=== PATIENT | male | born 1970 | race American Indian/Alaskan Native ===

== ENCOUNTER 2017-10-25 15:27 | Inpatient (IN) | payer SELFPAY ==
--- NOTE | 2017-10-25 18:28 | Emergency Department Report ---
ED Shortness of Breath HPI - General Chief Complaint: Dyspnea/Respdistress Stated Complaint: FLU LIKE SYMPTOMS Time Seen by Provider: 10/25/17 16:42 Source: patient Mode of arrival: Ambulatory Limitations: No Limitations - History of Present Illness Initial Comments: 47-year-old male with no past medical history presents as complaining cough and shortness of breath times per month. Cough is productive of yellow sputum. Patient feels short of breath primarily with walking upstairs. Patient also complains of coughing with deep inspiration. He denies fever, body aches, chills, chest pain, no calf tenderness, recent travel, leg edema, history of PE/ DVT, orthopnea, or PND. He also denies smoking currently but has smoked in the past. - Related Data Allergies Allergy/AdvReac Type Severity Reaction Status Date / Time No Known Allergies Allergy Unverified 10/25/17 16:27 ED Review of Systems ROS: Stated complaint: FLU LIKE SYMPTOMS Other details as noted in HPI Comment: All other systems reviewed and negative Other: Constitutional: No fevers chills Eyes: No eye pain visual changes ENT: No ear pain or throat pain Neck: Denies pain Respiratory: As per HPI Cardiovascular: Denies chest pain, palpitations, syncope GI: Denies abdominal pain, nausea, vomiting, diarrhea : Denies dysuria Musculoskeletal: Denies back pain, joint swelling Skin: Denies rash, lesions, erythema Neurologic: Denies headache, numbness, weakness Psychiatric: Denies suicidal ideation, hallucinations ED Past Medical Hx - Past Medical History Previous Medical History?: No - Surgical History Past Surgical History?: Yes Additional Surgical History: hernia repair - Social History Smoking Status: Never Smoker Substance Use Type: Alcohol ED Physical Exam - General Limitations: No Limitations - Other Other exam information: General: No limitations, patient is alert in no acute distress Head exam: Atraumatic, normocephalic Eyes exam: Normal appearance ENT: Moist mucous membrane, normal oropharynx Neck exam: Normal inspection, full range of motion, no meningismus nontender Respiratory exam: No tachypnea or accessory muscle use. Bibasilar fine crackles Cardiovascular: Normal rate and rhythm, normal heart sounds Abdomen: Soft, nondistended, and nontender, with normal bowel sounds, no rebound, or guarding Extremity: Full range of motion normal inspection no deformity, tenderness or edema Back: Normal Inspection, full range of motion, no tenderness Neurologic: Alert, oriented x3, cranial nerves intact, no motor or sensory deficit Psychiatric: normal affect, normal mood Skin: Warm, dry, intact ED Course Vital Signs 10/25/17 16:27 Temperature 98.5 F Pulse Rate 76 Respiratory 16 Rate Blood Pressure 112/71 O2 Sat by Pulse 98 Oximetry - Reevaluation(s) Reevaluation #1: 10/25/17 18:57 Chest x-ray would a significant infiltrate Labs ordered INT with IV Rocephin and azithromycin ordered ED Medical Decision Making - Lab Data Result diagrams: 10/25/17 19:03 10/25/17 19:03 Lab Results 10/25/17 10/25/17 10/25/17 Range/Units 19:03 19:03 19:03 WBC 4.8 (4.5-11.0) K/mm3 RBC 4.44 (3.65-5.03) M/mm3 Hgb 14.7 (11.8-15.2) gm/dl Hct 43.4 (35.5-45.6) % MCV 98 H (84-94) fl MCH 33 H (28-32) pg MCHC 34 (32-34) % RDW 13.4 (13.2-15.2) % Plt Count 204 (140-440) K/mm3 Lymph % (Auto) 15.6 (13.4-35.0) % [place] % (Auto) 12.6 H (0.0-7.3) % Eos % (Auto) 2.6 (0.0-4.3) % Baso % (Auto) 0.6 (0.0-1.8) % Lymph # 0.7 L (1.2-5.4) K/mm3 [place] # 0.6 (0.0-0.8) K/mm3 Eos # 0.1 (0.0-0.4) K/mm3 Baso # 0.0 (0.0-0.1) K/mm3 Seg Neutrophils % 68.6 (40.0-70.0) % Seg Neutrophils # 3.3 (1.8-7.7) K/mm3 VBG pH (7.320-7.420) Sodium 141 (137-145) mmol/L Potassium 3.9 (3.6-5.0) mmol/L Chloride 101.4 (98-107) mmol/L Carbon Dioxide 27 (22-30) mmol/L Anion Gap 17 mmol/L BUN 13 (9-20) mg/dL Creatinine 0.9 (0.8-1.5) mg/dL Estimated GFR > 60 ml/min BUN/Creatinine Ratio 14 % Glucose 98 (75-100) mg/dL Lactic Acid 1.80 (0.7-2.0) mmol/L Calcium 9.3 (8.4-10.2) mg/dL NT-Pro-B Natriuret Pep (0-450) pg/mL 10/25/17 10/25/17 Range/Units 19:03 19:03 WBC (4.5-11.0) K/mm3 RBC (3.65-5.03) M/mm3 Hgb (11.8-15.2) gm/dl Hct (35.5-45.6) % MCV (84-94) fl MCH (28-32) pg MCHC (32-34) % RDW (13.2-15.2) % Plt Count (140-440) K/mm3 Lymph % (Auto) (13.4-35.0) % [place] % (Auto) (0.0-7.3) % Eos % (Auto) (0.0-4.3) % Baso % (Auto) (0.0-1.8) % Lymph # (1.2-5.4) K/mm3 [place] # (0.0-0.8) K/mm3 Eos # (0.0-0.4) K/mm3 Baso # (0.0-0.1) K/mm3 Seg Neutrophils % (40.0-70.0) % Seg Neutrophils # (1.8-7.7) K/mm3 VBG pH 7.303 L (7.320-7.420) Sodium (137-145) mmol/L Potassium (3.6-5.0) mmol/L Chloride (98-107) mmol/L Carbon Dioxide (22-30) mmol/L Anion Gap mmol/L BUN (9-20) mg/dL Creatinine (0.8-1.5) mg/dL Estimated GFR ml/min BUN/Creatinine Ratio % Glucose (75-100) mg/dL Lactic Acid (0.7-2.0) mmol/L Calcium (8.4-10.2) mg/dL NT-Pro-B Natriuret Pep 53.30 (0-450) pg/mL - EKG Data -: EKG Interpreted by Me (RBBB, ) EKG shows normal: sinus rhythm (72), axis (-34), QRS complexes (138), ST-T waves (repol) Rate: normal - EKG Data When compared to previous EKG there are: previous EKG unavailable - Radiology Data Radiology results: report reviewed read radiologist Chest x-ray: Abnormal bands of increased density right and left lungs. May be chronic represent scarring but can exclude pneumonia CT angiogram chest: 2 small pulmonary emboli suspected. Mild to moderate emphysematous changes in both lungs. Patchy alveolar densities and consolidations bilaterally. Air bronchograms. Was suggestive of pneumonia and or atelectasis instead of mass. Large areas of confluence fibrosis could also present in this manner. Some changes may also represented chronic fibrosis - Medical Decision Making Patient's chest x-ray and CT angiogram significant for infiltrates/fibrosis as well as pulmonary emboli. Vital signs remained stable. Patient received Rocephin, azithromycin, and Lovenox in the ED. Plan to admit to the hospital for further treatment and pulmonology consultation. - Differential Diagnosis bronchitis, CHF, pneumonia, PE, unstable angina Critical Care Time: No Critical care attestation.: If time is entered above; I have spent that time in minutes in the direct care of this critically ill patient, excluding procedure time. ED Disposition Clinical Impression: Pneumonia, Pulmonary infiltrates, Pulmonary emboli, Pulmonary fibrosis, Emphysema lung Disposition: OP ADMIT IP TO THIS HOSP Is pt being admited?: Yes Condition: Stable Time of Disposition: 21:52 (Dr Michael/hosp)
[2017-10-25] MEDS ORDERED: ZITHROMAX 500 MG in NACL 0.9% 250ML 250 ML IV ONE (18:55)
[2017-10-25] MEDS ORDERED: ROCEPHIN/NS 1 GM/50 ML 1 GM/50 ML BAG IV ONE (18:55)
--- NOTE | 2017-10-25 19:02 | XRay Report ---
FINAL REPORT PROCEDURE: PA and lateral chest x-ray TECHNIQUE: PA and lateral chest radiographs were obtained. CPT 64138 HISTORY: cough/sob COMPARISON: No prior studies are available for comparison. FINDINGS: Heart size and pulmonary vasculature appear normal. Patchy bands of increased density project throughout the right mid and lower lung field and in the left midlung field. Some of this may represent parenchymal scarring. Correlation with clinical presentation necessary to exclude acute abnormalities such as pneumonia. No effusions are identified. No acute bony abnormalities are seen. IMPRESSION: Abnormal bands of increased density right and left lungs as described. Some of this may be chronic and represent scarring. I cannot exclude pneumonia..
[2017-10-25 19:15] LABS: Basophils % (Auto) 0.6 % (0.0-1.8); Eosinophils # (Auto) 0.1 K/mm3 (0.0-0.4); Eosinophils % (Auto) 2.6 % (0.0-4.3); Hematocrit 43.4 % (35.5-45.6); Hemoglobin 14.7 gm/dl (11.8-15.2); Lymphocytes # (Auto) 0.7 K/mm3 (1.2-5.4); Lymphocytes % (Auto) 15.6 % (13.4-35.0); Mean Corpuscular HGB Conc 34 % (32-34); Mean Corpuscular Hemoglobin 33 pg (28-32); Mean Corpuscular Volume 98 fl (84-94); Monocytes # (Auto) 0.6 K/mm3 (0.0-0.8); Monocytes % (Auto) 12.6 % (0.0-7.3); Platelet Count 204 K/mm3 (140-440); Red Blood Count 4.44 M/mm3 (3.65-5.03); Red Cell Distribution Width 13.4 % (13.2-15.2)
[2017-10-25 19:40] LABS: BUN/Creatinine Ratio 14; Blood Urea Nitrogen 13 mg/dL (9-20); Calcium 9.3 mg/dL (8.4-10.2); Hemolysis Index 6
--- NOTE | 2017-10-25 21:50 | Cat Scan Report ---
FINAL REPORT PROCEDURE: CT ANGIO CHEST TECHNIQUE: Computerized tomographic angiography of the chest was performed during the IV injection of iodinated nonionic contrast including image processing. The image data was postprocessed using 2-dimensional multiplanar reformatted (MPR) and 3-dimensional (MIP and/or volume rendered) techniques. HISTORY: cough, sob, infiltrate vs lung scarring. Evaluate pulmonary embolus COMPARISON: No prior studies are available for comparison. FINDINGS: Pulmonary outflow tract, right and left main pulmonary arteries and their proximal branches: There is a thin linear filling defects seen extending from the left main pulmonary artery into 1 of the branches of the left upper lobe seen on coronal image 73 and 74 series 201 and axial image 45 series 3. The appearance is consistent with a small pulmonary embolus. There is also a small filling defects seen tip in the proximal end of the left lower lobe pulmonary artery visualized on axial image 49 series 3 and coronal image 79 through 81 series 201. this appearance is also consistent with a small pulmonary embolus. Pulmonary outflow tract right and left main pulmonary arteries in their proximal branches otherwise appear clear. Pericardium: No evidence of pericardial effusion. Thoracic aorta: No evidence of aortic aneurysm Coronary arteries: Are partially calcified indicating atherosclerotic disease. Mediastinum and hilar regions: Nonspecific subcentimeter lymph nodes are visualized. No pathologically enlarged lymph nodes or masses are identified. Lung [place]: There is mild to moderate emphysematous change seen in both upper lobes. There is patchy increased alveolar densities and confluent areas of consolidation extending into the right upper lobe, right perihilar region, left perihilar region with multiple air bronchograms present. Interstitial markings are diffusely coarsened. No discrete masses are identified. No effusions or pneumothorax are seen. Upper abdomen: Spleen is enlarged measuring 14.3 centimeter. Upper abdomen otherwise unremarkable. Other: No acute bony abnormalities are visualized. IMPRESSION: Small filling defect visualized left lower lobe pulmonary artery and 1 of the branches of the left upper lobe pulmonary arteries consistent with small pulmonary embolus. No other pulmonary emboli are visualized. Mild to moderate emphysematous changes seen in both upper lobes. There are patchy alveolar densities and consolidations visualized bilaterally as described. Air bronchograms are visualized. No discrete masses are identified. The appearance is more suggestive of pneumonia and or atelectasis than a mass. Large areas of confluent fibrosis could present this manner.. Endobronchial lesions cannot be excluded. Some of the changes may also represent chronic fibrosis. Interstitial markings diffusely coarsened. I suspect a portion of this represents fibrosis. Superimposed interstitial infiltrate not entirely excluded. No effusions are seen. Critical value: These findings were discussed in detail with on 10/25/2017 at 9:43 p.m. Eastern standard time.
[2017-10-25] MEDS: LOVENOX SUB-Q SCH (22:32)
--- NOTE | 2017-10-25 22:44 | History and Physical Report ---
History of Present Illness Date of examination: 10/25/17 History of present illness: 47-year-old man with no medical problems comes emergency room with complaints of shortness of breath, dyspnea on exertion especially within going upstairs and cough productive of yellow phlegm 2 months he denies any fever or chills Review Of Systems: Constitutional: no weight loss Ears, eyes, nose, mouth and throat: no nasal congestion, no nasal discharge, no sinus pressure, blurry vision, diplopia Neck: No neck pain or rigidity. Cardiovascular: chest pain, orthopnea, palpitations Respiratory: +shortness of breath, cough Gastrointestinal: abdominal pain, hematochezia Genitourinary : no dysuria, frequency , hematuria Musculoskeletal: no muscle ache Integumentary: no rash, no pruritis Neurological: no parathesias, focal weakness Endocrine: no cold or heat intolerance, no polyuria or polydipsia Hematologic/Lymphatic: no easy bruising, no easy bleeding, no gland swelling Allergic/Immunologic: no urticaria, no angioedema. PAST MEDICAL HISTORY:none PAST SURGICAL HISTORY: none FAMILY HISTORY: Hypertension SOCIAL HISTORY: No tobacco, alcohol, drugs Medications and Allergies Allergies Allergy/AdvReac Type Severity Reaction Status Date / Time No Known Allergies Allergy Unverified 10/25/17 16:27 Active Meds: Active Medications Enoxaparin Sodium (Lovenox) 80 mg 1 mg/kg (80 mg) SUB-Q Q12HR IHLARIA Last Admin: 10/25/17 22:32 Dose: 80 mg Exam - Physical Exam Narrative exam: Gen. appearance: Patient lying in bed in no acute distress HEENT: Normocephalic/atraumatic, pupils equal round reactive to light, extra alkaline movement intact, no scleral icterus, no JVD or thyromegaly or nodule, neck is supple, mucous membrane moist, no erythema or exudate Heart: S1-S2, regular rate and rhythm Lungs: Crackle, breathing comfortable Abdomen: Positive bowel sounds, nontender, nondistended, no organomegaly Extremities: No edema, cyanosis, clubbing Neuro:: Oriented 3 , cranial nerves II-12 intact, speech, motor intact Skin: No rash, nodules, warm dry - Constitutional Vitals: Temp Pulse Resp BP Pulse Ox 98.5 F 54 L 22 128/77 100 10/25/17 16:27 10/25/17 22:16 10/25/17 22:16 10/25/17 22:16 10/25/17 22:09 Results - Labs CBC & Chem 7: 10/25/17 19:03 10/25/17 19:03 Labs: Abnormal lab results 10/25/17 10/25/17 Range/Units 19:03 19:03 MCV 98 H (84-94) fl MCH 33 H (28-32) pg [place] % (Auto) 12.6 H (0.0-7.3) % Lymph # 0.7 L (1.2-5.4) K/mm3 VBG pH 7.303 L (7.320-7.420) - Imaging and Cardiology EKG: image reviewed Chest x-ray: image reviewed CT scan - chest: report reviewed Assessment and Plan Assessment Acute pulmonary Emboli Pneumonia, community-acquired Plan Admit to medicine Start full dose lovenox, IV levaquin, percocet for pain Obtain doppler of lower extremities DVT prophylaxis
[2017-10-25] MEDS ORDERED: ZOFRAN IV PRN (23:12)
[2017-10-25] MEDS ORDERED: DULCOLAX PR PRN (23:12)
[2017-10-25] MEDS ORDERED: MILK OF MAGNESIA PO PRN (23:12)
[2017-10-25] MEDS ORDERED: TYLENOL PO PRN (23:12)
[2017-10-25] MEDS ORDERED: PERCOCET 5/325 PO PRN (23:12)
[2017-10-26 06:35] LABS: Basophils % (Auto) 0.5 % (0.0-1.8); Eosinophils # (Auto) 0.1 K/mm3 (0.0-0.4); Eosinophils % (Auto) 2.8 % (0.0-4.3); Hematocrit 40.9 % (35.5-45.6); Hemoglobin 13.7 gm/dl (11.8-15.2); Lymphocytes # (Auto) 0.6 K/mm3 (1.2-5.4); Lymphocytes % (Auto) 14.1 % (13.4-35.0); Mean Corpuscular HGB Conc 34 % (32-34); Mean Corpuscular Hemoglobin 33 pg (28-32); Mean Corpuscular Volume 98 fl (84-94); Monocytes # (Auto) 0.7 K/mm3 (0.0-0.8); Monocytes % (Auto) 15.5 % (0.0-7.3); Platelet Count 192 K/mm3 (140-440); Red Blood Count 4.18 M/mm3 (3.65-5.03); Red Cell Distribution Width 13.4 % (13.2-15.2)
[2017-10-26 06:54] LABS: BUN/Creatinine Ratio 14; Blood Urea Nitrogen 11 mg/dL (9-20); Hemolysis Index 3
--- NOTE | 2017-10-26 09:02 | Progress Note ---
Assessment and Plan Assessment and plan: --Pulmonary embolism; continue full dose Lovenox, oxygen titrated to O2 sats more than 90%, supportive care We will switch to eliquis, hypercoagulable workup, hematology consult --Community-acquired pneumonia; currently, continue current antibiotics Follow cultures, supportive care --Ongoing tobacco use; smoking cessation counseling done Advised nicotine patch as needed --DVT prophylaxis; patient is on lovenox Closely monitor the patient and adjust management as needed Follow-up hematology recommendations Possible discharge in 1-2 days if stable --DC planning. Case management Plan of care reviewed with the patient and his nurse History Interval history: Patient seen and examined medical records reviewed Admitted with pulmonary embolism, and bilateral pneumonia On full dose anticoagulation with Lovenox Patient feels better no new complaints Vital signs reviewed Hospitalist Physical - Constitutional Vitals: Temp Pulse Resp BP Pulse Ox 97.9 F 63 18 116/84 97 10/26/17 05:15 10/26/17 05:15 10/26/17 05:15 10/26/17 05:15 10/26/17 05:15 General appearance: Present: no acute distress, well-nourished - EENT Eyes: Present: PERRL, EOM intact - Neck Neck: Present: supple, normal ROM - Respiratory Respiratory effort: normal Respiratory: bilateral: diminished, rhonchi, negative: rales, wheezing - Cardiovascular Rhythm: regular Heart Sounds: Present: S1 & S2 - Extremities Extremities: no ischemia, No edema - Abdominal General gastrointestinal: soft, non-tender, non-distended, normal bowel sounds - Integumentary Integumentary: Present: clear, warm - Psychiatric Psychiatric: appropriate mood/affect, cooperative - Neurologic Neurologic: CNII-XII intact, moves all extremities Results - Labs CBC & Chem 7: 10/26/17 05:54 10/26/17 05:54 Labs: Laboratory Last Values WBC 4.6 K/mm3 (4.5-11.0) 10/26/17 05:54 RBC 4.18 M/mm3 (3.65-5.03) 10/26/17 05:54 Hgb 13.7 gm/dl (11.8-15.2) 10/26/17 05:54 Hct 40.9 % (35.5-45.6) 10/26/17 05:54 MCV 98 fl (84-94) H 10/26/17 05:54 MCH 33 pg (28-32) H 10/26/17 05:54 MCHC 34 % (32-34) 10/26/17 05:54 RDW 13.4 % (13.2-15.2) 10/26/17 05:54 Plt Count 192 K/mm3 (140-440) 10/26/17 05:54 Lymph % (Auto) 14.1 % (13.4-35.0) 10/26/17 05:54 [place] % (Auto) 15.5 % (0.0-7.3) H 10/26/17 05:54 Eos % (Auto) 2.8 % (0.0-4.3) 10/26/17 05:54 Baso % (Auto) 0.5 % (0.0-1.8) 10/26/17 05:54 Lymph # 0.6 K/mm3 (1.2-5.4) L 10/26/17 05:54 [place] # 0.7 K/mm3 (0.0-0.8) 10/26/17 05:54 Eos # 0.1 K/mm3 (0.0-0.4) 10/26/17 05:54 Baso # 0.0 K/mm3 (0.0-0.1) 10/26/17 05:54 Seg Neutrophils % 67.1 % (40.0-70.0) 10/26/17 05:54 Seg Neutrophils # 3.1 K/mm3 (1.8-7.7) 10/26/17 05:54 VBG pH 7.303 (7.320-7.420) L 10/25/17 19:03 Sodium 137 mmol/L (137-145) 10/26/17 05:54 Potassium 4.0 mmol/L (3.6-5.0) 10/26/17 05:54 Chloride 101.3 mmol/L (98-107) 10/26/17 05:54 Carbon Dioxide 26 mmol/L (22-30) 10/26/17 05:54 Anion Gap 14 mmol/L 10/26/17 05:54 BUN 11 mg/dL (9-20) 10/26/17 05:54 Creatinine 0.8 mg/dL (0.8-1.5) 10/26/17 05:54 Estimated GFR > 60 ml/min 10/26/17 05:54 BUN/Creatinine Ratio 14 % 10/26/17 05:54 Glucose 122 mg/dL (75-100) H 10/26/17 05:54 Lactic Acid 1.80 mmol/L (0.7-2.0) 10/25/17 19:03 Calcium 9.0 mg/dL (8.4-10.2) 10/26/17 05:54 NT-Pro-B Natriuret Pep 53.30 pg/mL (0-450) 10/25/17 19:03
--- NOTE | 2017-10-26 10:05 | Hem/Onc Consultation ---
History of Present Illness - Reason for Consult Consult date: 10/26/17 - History of Present Illness 47-year-old male with no past medical history presents as complaining cough and shortness of breath times per month. Cough is productive of yellow sputum. Patient feels short of breath primarily with walking upstairs. Patient also complains of coughing with deep inspiration. He denies fever, body aches, chills, chest pain, no calf tenderness, recent travel, leg edema, history of PE/ DVT, orthopnea, or PND. He also denies smoking currently but has smoked in the past but quit in August. Denies any family history of thrombosis. Denies any previous history of thrombosis. Patient used to drive a cab But quit 2 years ago. He has been quite active. Denies any active weight loss. Does not take any hormones. Patient underwent CT angiogram to rule out PE and he did have a small left- sided PE. He also had evidence of pneumonia. Hematology consult was called Medications and Allergies Allergies Allergy/AdvReac Type Severity Reaction Status Date / Time No Known Allergies Allergy Unverified 10/25/17 16:27 Home Medications Medication Instructions Recorded Confirmed Last Taken Type No Known Home Medications [No 10/26/17 10/26/17 Unknown History Reported Home Medications] Active Meds: Active Medications Acetaminophen (Tylenol) 650 mg PO Q4H PRN PRN Reason: Pain MILD(1-3)/Fever >100.5/BENÍTEZ Bisacodyl (Dulcolax) 10 mg [place] QDAY PRN PRN Reason: Constipation unrelieved by MOM Enoxaparin Sodium (Lovenox) 80 mg 1 mg/kg (80 mg) SUB-Q Q12HR HILARIA Last Admin: 10/25/17 22:32 Dose: 80 mg Levofloxacin/Dextrose (Levaquin 750mg/150ml) 750 mg in 150 mls @ 100 mls/hr IV Q24H HILARIA Magnesium Hydroxide (Milk Of Magnesia) 30 ml PO Q4H PRN PRN Reason: Constipation Ondansetron HCl (Zofran) 4 mg IV Q8H PRN PRN Reason: N/V unrelieved by Reglan Oxycodone/Acetaminophen (Percocet 5/325) 1 tab PO Q6H PRN PRN Reason: Pain, Moderate (4-6) Review of Systems Constitutional: other (as mentioned in history of present illness) Exam - Constitutional Vitals: Last Vital Signs Temp 97.9 F 10/26/17 05:15 Pulse 63 10/26/17 05:15 Resp 18 10/26/17 05:15 BP 116/84 10/26/17 05:15 Pulse Ox 97 10/26/17 05:15 Pain Intensity (0-10): denies any pain General appearance: no acute distress Performance status: 2- selfcare, ambulatory - Neck Neck: supple - Respiratory Respiratory effort: Positive: normal Respiratory: bilateral: diminished - Cardiovascular Rhythm: regular Extremities: No edema - Gastrointestinal General gastrointestinal: Present: soft Results - Labs lab Results: Laboratory Results - last 24 hr 10/25/17 10/25/17 10/25/17 19:03 19:03 19:03 WBC 4.8 RBC 4.44 Hgb 14.7 Hct 43.4 MCV 98 H MCH 33 H MCHC 34 RDW 13.4 Plt Count 204 Lymph % (Auto) 15.6 [place] % (Auto) 12.6 H Eos % (Auto) 2.6 Baso % (Auto) 0.6 Lymph # 0.7 L [place] # 0.6 Eos # 0.1 Baso # 0.0 Seg Neutrophils % 68.6 Seg Neutrophils # 3.3 VBG pH Sodium 141 Potassium 3.9 Chloride 101.4 Carbon Dioxide 27 Anion Gap 17 BUN 13 Creatinine 0.9 Estimated GFR > 60 BUN/Creatinine Ratio 14 Glucose 98 Lactic Acid 1.80 Calcium 9.3 NT-Pro-B Natriuret Pep 10/25/17 10/25/17 10/26/17 19:03 19:03 05:54 WBC 4.6 RBC 4.18 Hgb 13.7 Hct 40.9 MCV 98 H MCH 33 H MCHC 34 RDW 13.4 Plt Count 192 Lymph % (Auto) 14.1 [place] % (Auto) 15.5 H Eos % (Auto) 2.8 Baso % (Auto) 0.5 Lymph # 0.6 L [place] # 0.7 Eos # 0.1 Baso # 0.0 Seg Neutrophils % 67.1 Seg Neutrophils # 3.1 VBG pH 7.303 L Sodium Potassium Chloride Carbon Dioxide Anion Gap BUN Creatinine Estimated GFR BUN/Creatinine Ratio Glucose Lactic Acid Calcium NT-Pro-B Natriuret Pep 53.30 10/26/17 05:54 WBC RBC Hgb Hct MCV MCH MCHC RDW Plt Count Lymph % (Auto) [place] % (Auto) Eos % (Auto) Baso % (Auto) Lymph # [place] # Eos # Baso # Seg Neutrophils % Seg Neutrophils # VBG pH Sodium 137 Potassium 4.0 Chloride 101.3 Carbon Dioxide 26 Anion Gap 14 BUN 11 Creatinine 0.8 Estimated GFR > 60 BUN/Creatinine Ratio 14 Glucose 122 H Lactic Acid Calcium 9.0 NT-Pro-B Natriuret Pep Assessment and Plan Currently patient is on Lovenox. Would recommend switching him to eliquis. We will order a hypercoagulable workup. Patient may need 3 months of L questions if otherwise uncomplicated pulmonary embolus. I will repeat CT of the chest in 3 months to make sure that his pulmonary infiltrates have resolved. Strongly recommended to quit smoking which he already has done.
[2017-10-26] MEDS: LEVAQUIN 750MG/150ML 750 MG/150 ML BAG IV SCH (11:30)
[2017-10-26] MEDS: LOVENOX SUB-Q SCH ×2 (11:31→21:59)
--- NOTE | 2017-10-27 08:22 | Hem/Onc Progress Note ---
Assessment and Plan Lower extremity Doppler negative for DVT. Patient to continue eliquis If discharged patient to follow-up in my office in 2-3 weeks Subjective Date of service: 10/27/17 Interval history: Patient feels better. Was started on eliquis. Shortness of breath has improved Objective - Constitutional Vitals: Last Vital Signs Temp 98 F 10/26/17 20:02 Pulse 100 H 10/26/17 20:02 Resp 20 10/26/17 20:07 BP 127/60 10/26/17 20:02 Pulse Ox 98 10/26/17 20:07 Pain Intensity (0-10): denies any pain Performance status: 2- selfcare, ambulatory - Neck Neck: supple - Respiratory Respiratory: bilateral: CTA - Cardiovascular Rhythm: regular Extremities: No edema - Gastrointestinal General gastrointestinal: Present: soft
[2017-10-27] MEDS: LEVAQUIN 750MG/150ML 750 MG/150 ML BAG IV SCH (09:22)
[2017-10-27] MEDS ORDERED: ELIQUIS PO SCH (10:00)
--- NOTE | 2017-10-27 10:38 | Vascular Lab Report ---
LOWER EXTREMITY VENOUS DUPLEX: REASON FOR EXAM: Deep venous thrombosis. COMMENTS ON THE RIGHT: All veins visualized are freely compressible without evidence of internal echogenicity. Flow is spontaneous and phasic throughout. COMMENTS ON THE LEFT: All veins visualized are freely compressible without evidence of internal echogenicity. Flow is spontaneous and phasic throughout. IMPRESSION: No evidence of acute or chronic deep venous thrombosis in either lower extremity.
--- NOTE | 2017-10-27 13:49 | Discharge Summary ---
Providers - Providers Date of Admission: 10/25/17 22:44 Date of discharge: 10/27/17 Attending physician: ERON GONZALEZ 10/26/17 09:02 Consult to Physician [CONS] Routine Consulting Provider: AYAN KRAUSE Reason For Exam: left PE Place consult to:: Dr. Krause Notified:: Erika PACHECO Phone number called:: Was contact made?: Yes If yes, spoke with:: Moni-office Time called:: 09:17 Comment:: Dr. Krause is off. Dr. Chinchilla will see patient Primary care physician: BRUSH MAKER Hospitalization Condition: Stable Disposition: DC-01 TO HOME OR SELFCARE Time spent for discharge: 32 min Core Measure Documentation - Palliative Care Palliative Care/ Comfort Measures: Not Applicable - Core Measures Any of the following diagnoses?: DVT/PE - VTE Discharge Requirements Deep Vein Thrombosis/Pulmonary Embolism Present on Admission: Yes Has pt received <5 days of overlap therapy or INR<2.0: No (On Eliquis) Anticoagulant overlap therapy prescribed at discharge: No Contraindication No Overlap Therapy order at DC: Not Indicated (On Eliquis) Exam - Constitutional Vitals: Temp Pulse Resp BP Pulse Ox 98.3 F 73 18 117/65 93 10/27/17 08:55 10/27/17 10:00 10/27/17 10:00 10/27/17 08:54 10/27/17 10:00 General appearance: Present: no acute distress, well-nourished - EENT Eyes: Present: PERRL, EOM intact - Neck Neck: Present: supple, normal ROM - Respiratory Respiratory effort: normal Respiratory: negative: rales, rhonchi, wheezing - Cardiovascular Rhythm: regular Heart Sounds: Present: S1 & S2 - Extremities Extremities: no ischemia, No edema - Abdominal General gastrointestinal: Present: soft, non-tender, non-distended, normal bowel sounds - Integumentary Integumentary: Present: clear, warm - Musculoskeletal Musculoskeletal: strength equal bilaterally - Psychiatric Psychiatric: appropriate mood/affect, cooperative - Neurologic Neurologic: CNII-XII intact, moves all extremities Plan Additional Instructions: If you notice any bleeding stop Eliquis and contact M.DAnkit Follow up with: PRIMARY CAREMD [Primary Care Provider] - 7 Days JENA CHINCHILLA MD [Staff Physician] - 7 Days Prescriptions: Apixaban [Eliquis] 5 mg PO BID #68 tablet oxyCODONE /ACETAMINOPHEN [Percocet 5/325] 1 tab PO BID PRN #10 tablet PRN Reason: Pain
[2017-10-27 16:53] VITALS: BP 98/71
[2017-10-28] MEDS ORDERED: LEVAQUIN PO SCH (10:00)
[2017-10-28 14:31] LABS: Protein S, Free 79 % normal (57-171); Protein S, Total 104 % (70-140)
[2017-11-03] MEDS ORDERED: ELIQUIS PO SCH (22:00)
== END 2017-10-27 17:52 | disposition home or self-care (01) | DRG 175 ==
LOC: ED 15:27 → 4A 22:44
PROVIDERS: ADMIT Internal Medicine; ATTEND Internal Medicine
DX: I26.99 Other pulmonary embolism without acute cor pulmonale (principal); J18.9 Pneumonia, unspecified organism; J84.10 Pulmonary fibrosis, unspecified; F17.210 Nicotine dependence, cigarettes, uncomplicated; J43.9 Emphysema, unspecified; Z82.49 Family history of ischemic heart disease and other diseases of the circulatory system; Z71.6 Tobacco abuse counseling
CPT/HCPCS: 36415; 71046; 71275; 80048; 82140; 82805; 83516; 83880; 85025; 85210; 85220; 85301; 85305; 85613; 87040; 93005; 93010; 93970; 96365; 96368; J0456; J0696; J1650; J1956; J7050; Q9967

== ENCOUNTER 2017-12-13 21:21 | Emergency (ER) | payer SELFPAY ==
--- NOTE | 2017-12-14 04:18 | XRay Report ---
FINAL REPORT PROCEDURE: XR CHEST 1V AP TECHNIQUE: Chest radiograph anteroposterior view. CPT 92647 HISTORY: Shortness of breath COMPARISON: 10/25/2017 FINDINGS: Heart: Normal. Mediastinum/Vessels: Normal. Lungs/Pleural space: COPD with mild fibrosis. Scarring identified in both lungs. No effusion or pneumothorax. Bony thorax: No acute osseous abnormality. Life support devices: None. IMPRESSION: Scattered infiltrates both lungs. COPD with fibrosis. Mild scarring both mid-lungs..
[2017-12-14 04:41] LABS: Hematocrit 43.3 % (35.5-45.6); Hemoglobin 14.2 gm/dl (11.8-15.2); Mean Corpuscular HGB Conc 33 % (32-34); Mean Corpuscular Hemoglobin 32 pg (28-32); Mean Corpuscular Volume 98 fl (84-94); Platelet Count 222 K/mm3 (140-440); Red Blood Count 4.41 M/mm3 (3.65-5.03); Red Cell Distribution Width 13.4 % (13.2-15.2)
[2017-12-14 05:00] LABS: BUN/Creatinine Ratio 19; Blood Urea Nitrogen 13 mg/dL (9-20); Calcium 8.8 mg/dL (8.4-10.2); Hemolysis Index 29
[2017-12-14 05:58] LABS: Basophils % (Manual) 0 % (0.0-1.8); Total Cells Counted 100
[2017-12-14 06:00] LABS: Platelet Estimate Consistent w Auto
--- NOTE | 2017-12-14 06:24 | Emergency Department Report ---
ED General Adult HPI - General Chief complaint: Dyspnea/Respdistress Stated complaint: BACK PAIN,SOB Time Seen by Provider: 12/14/17 06:20 Source: patient Mode of arrival: Ambulatory Limitations: No Limitations - History of Present Illness Initial comments: This is a patient states he is compliant with his Eliquis. He is followed up once since being diagnosed with a small peripheral pulmonary embolism and pneumonia in October. He states he is coughing but infrequently producing a whitish sputum. He does not complain of shortness of breath at this time. He has a history of pulmonary fibrosis/COPD but does not use an inhaler or a home neb machine. He is comfortable at the time of my encounter. He does not complain of chest pain or back pain or leg pain. He does not complain of chest pain back pain or leg pain. -: Gradual, days(s) Associated Symptoms: denies other symptoms - Related Data Previous Rx's Medication Instructions Recorded Last Taken Type Apixaban [Eliquis] 5 mg PO BID #68 tablet 10/27/17 Unknown Rx oxyCODONE /ACETAMINOPHEN [Percocet 1 tab PO BID PRN #10 tablet 10/27/17 Unknown Rx 5/325] Albuterol Sulfate [Ventolin HFA] 2 puff IH Q4H PRN #1 hfa.aer.ad 12/14/17 Unknown Rx Amoxicillin/Potassium Clav 1 each PO BID #14 tablet 12/14/17 Unknown Rx [Augmentin 875-125 Tablet] Allergies Allergy/AdvReac Type Severity Reaction Status Date / Time No Known Allergies Allergy Unverified 10/25/17 16:27 ED Review of Systems ROS: Stated complaint: BACK PAIN,SOB Other details as noted in HPI Constitutional: denies: chills, fever Eyes: denies: eye pain, eye discharge, vision change ENT: denies: ear pain, throat pain Respiratory: cough, shortness of breath Cardiovascular: denies: chest pain, palpitations Endocrine: no symptoms reported Gastrointestinal: denies: abdominal pain, nausea, diarrhea Genitourinary: denies: urgency, dysuria Musculoskeletal: denies: back pain, joint swelling, arthralgia Skin: denies: rash, lesions Neurological: denies: headache, weakness, paresthesias Psychiatric: denies: anxiety, depression Hematological/Lymphatic: denies: easy bleeding, easy bruising ED Past Medical Hx - Past Medical History Hx Congestive Heart Failure: No Hx Diabetes: No Hx Deep Vein Thrombosis: Yes (10/2017) Hx Asthma: No Hx COPD: Yes (emphysema,pulmonary fibrosis,pneumonia 10/2017) Hx HIV: No - Surgical History Additional Surgical History: hernia repair - Social History Smoking Status: Former Smoker Substance Use Type: Alcohol - Medications Home Medications: Home Medications Medication Instructions Recorded Confirmed Last Taken Type Apixaban [Eliquis] 5 mg PO BID #68 tablet 10/27/17 Unknown Rx oxyCODONE /ACETAMINOPHEN [Percocet 1 tab PO BID PRN #10 tablet 10/27/17 Unknown Rx 5/325] Albuterol Sulfate [Ventolin HFA] 2 puff IH Q4H PRN #1 hfa.aer.ad 12/14/17 Unknown Rx Amoxicillin/Potassium Clav 1 each PO BID #14 tablet 12/14/17 Unknown Rx [Augmentin 875-125 Tablet] ED Physical Exam - General Limitations: No Limitations General appearance: alert, in no apparent distress - Head Head exam: Present: atraumatic, normocephalic - Eye Eye exam: Present: normal appearance, PERRL, EOMI. Absent: scleral icterus - ENT ENT exam: Present: mucous membranes moist - Neck Neck exam: Present: normal inspection - Respiratory Respiratory exam: Present: normal lung sounds bilaterally. Absent: respiratory distress, accessory muscle use, decreased breath sounds, prolonged expiratory - Cardiovascular Cardiovascular Exam: Present: regular rate, normal rhythm. Absent: systolic murmur, diastolic murmur, rubs, gallop - GI/Abdominal GI/Abdominal exam: Present: soft, normal bowel sounds. Absent: distended, tenderness, guarding, rebound, rigid - Rectal Rectal exam: Present: deferred - Extremities Exam Extremities exam: Present: normal inspection - Back Exam Back exam: Present: normal inspection - Neurological Exam Neurological exam: Present: alert, oriented X3 - Psychiatric Psychiatric exam: Present: normal affect, normal mood - Skin Skin exam: Present: warm, dry, intact, normal color. Absent: rash ED Course Vital Signs 12/13/17 12/13/17 12/14/17 21:42 21:50 03:46 Temperature 98.1 F 98.1 F Pulse Rate 76 70 Respiratory 18 18 Rate Blood Pressure 118/76 118/76 O2 Sat by Pulse 95 96 95 Oximetry 04/06/2312/14/17 12/14/17 04:00 04:19 04:30 Temperature Pulse Rate 68 60 Respiratory 30 H 28 H 15 Rate Blood Pressure 106/70 110/73 O2 Sat by Pulse 95 95 94 Oximetry 12/14/17 12/14/17 12/14/17 05:00 05:30 06:01 Temperature Pulse Rate 60 57 L 59 L Respiratory 11 L 22 23 Rate Blood Pressure 104/68 106/69 106/69 O2 Sat by Pulse 69 L 88 96 Oximetry 12/14/17 12/14/17 06:30 07:00 Temperature Pulse Rate 58 L 62 Respiratory 25 H 23 Rate Blood Pressure 112/71 112/68 O2 Sat by Pulse 92 Oximetry - Reevaluation(s) Reevaluation #1: I'm going to place patient on Augmentin because he has fibrotic lung disease. I going to refer him to pulmonary. I will give him a hand-held inhaler. He is discharged in stable condition. Outpatient management is appropriate. He will continue his Eliquis. 12/14/17 07:29 ED Medical Decision Making - Lab Data Result diagrams: 12/14/17 04:18 12/14/17 04:18 Laboratory Results - last 24 hr 12/14/17 12/14/17 12/14/17 04:18 04:18 04:18 WBC 4.9 RBC 4.41 Hgb 14.2 Hct 43.3 MCV 98 H MCH 32 MCHC 33 RDW 13.4 Plt Count 222 [place] % (Auto) Batchmaker Add Manual Diff Complete Total Counted 100 Seg Neuts % (Manual) 67.0 Band Neutrophils % 1.0 Lymphocytes % (Manual) 17.0 Reactive Lymphs % (Man) 0 Monocytes % (Manual) 12.0 H Eosinophils % (Manual) 3.0 Basophils % (Manual) 0 Metamyelocytes % 0 Myelocytes % 0 Promyelocytes % 0 Blast Cells % 0 Nucleated RBC % Not Reportable Seg Neutrophils # Man 3.3 Band Neutrophils # 0.0 Lymphocytes # (Manual) 0.8 L Abs React Lymphs (Man) 0.0 Monocytes # (Manual) 0.6 Eosinophils # (Manual) 0.1 Basophils # (Manual) 0.0 Metamyelocytes # 0.0 Myelocytes # 0.0 Promyelocytes # 0.0 Blast Cells # 0.0 WBC Morphology Not Reportable Hypersegmented Neuts Not Reportable Hyposegmented Neuts Not Reportable Hypogranular Neuts Not Reportable Smudge Cells Not Reportable Toxic Granulation Not Reportable Toxic Vacuolation Not Reportable Dohle Bodies Not Reportable Pelger-Huet Anomaly Not Reportable Joe Rods Not Reportable Platelet Estimate Consistent w auto Clumped Platelets Not Reportable Plt Clumps, EDTA Not Reportable Large Platelets Not Reportable Giant Platelets Not Reportable Platelet Satelliting Not Reportable Plt Morphology Comment Not Reportable RBC Morphology Not Reportable Dimorphic RBCs Not Reportable Polychromasia Not Reportable Hypochromasia Not Reportable Poikilocytosis Not Reportable Anisocytosis Not Reportable Microcytosis Not Reportable Macrocytosis Not Reportable Spherocytes Not Reportable Pappenheimer Bodies Not Reportable Sickle Cells Not Reportable Target Cells Not Reportable Tear Drop Cells Not Reportable Ovalocytes Not Reportable Helmet Cells Not Reportable [place] Bodies Not Reportable [place] Rings Not Reportable [place] Cells Not Reportable Bite Cells Not Reportable Crenated Cell Not Reportable Elliptocytes Not Reportable Acanthocytes (Spur) Not Reportable Rouleaux Not Reportable Hemoglobin C Crystals Not Reportable Schistocytes Not Reportable Malaria parasites Not Reportable Jay Bodies Not Reportable Hem Pathologist Commnt No Sodium 135 L Potassium 4.1 Chloride 97.7 L Carbon Dioxide 27 Anion Gap 14 BUN 13 Creatinine 0.7 L Estimated GFR > 60 BUN/Creatinine Ratio 19 Glucose 93 Calcium 8.8 Troponin T < 0.010 - Radiology Data Radiology results: report reviewed interpreted by me: Pulmonary fibrosis and patchy infiltrates per radiology Critical care attestation.: If time is entered above; I have spent that time in minutes in the direct care of this critically ill patient, excluding procedure time. ED Disposition Clinical Impression: Pulmonary infiltrates, Pulmonary fibrosis COPD (chronic obstructive pulmonary disease) Qualifiers: COPD type: unspecified COPD Qualified Code(s): J44.9 - Chronic obstructive pulmonary disease, unspecified Disposition: DC-01 TO HOME OR SELFCARE Is pt being admited?: No Does the pt Need Aspirin: No Condition: Stable Instructions: Chronic Obstructive Pulmonary Disease (ED), Upper Respiratory Infection (ED) Additional Instructions: I would recommend follow-up with the logistics specialist if you do not already see 1. Continue your usual medicines. Rx as directed. Return fever chills difficulty breathing as necessary. Prescriptions: Albuterol Sulfate [Ventolin HFA] 2 puff IH Q4H PRN #1 hfa.aer.ad PRN Reason: Shortness Of Breath Amoxicillin/Potassium Clav [Augmentin 875-125 Tablet] 1 each PO BID #14 tablet Referrals: TIN DAVIS MD [Staff Physician] - 3-5 Days Time of Disposition: 07:31
[2017-12-14] MEDS ORDERED: XYLOCAINE 1% MPF 5 mL INFILTRATI ONE (07:34)
[2017-12-14] MEDS ORDERED: ROCEPHIN IM ONE (07:34)
[2017-12-14 07:48] VITALS: BP 109/68
== END 2017-12-14 08:00 | disposition home or self-care (01) ==
LOC: ED 21:21
DX: J44.9 Chronic obstructive pulmonary disease, unspecified (principal); J84.10 Pulmonary fibrosis, unspecified; Z87.891 Personal history of nicotine dependence; Z86.718 Personal history of other venous thrombosis and embolism
CPT/HCPCS: 36415; 71045; 80048; 83880; 84484; 85007; 85025; 93005; 93010

== ENCOUNTER 2019-07-06 02:52 | Emergency (ER) | payer SELFPAY ==
[2019-07-06 03:00] VITALS: BP 113/74
--- NOTE | 2019-07-06 03:56 | Emergency Department Report ---
ED General Adult HPI - General Chief complaint: Nosebleed Stated complaint: NOSE BLEED Time Seen by Provider: 07/06/19 03:45 Source: patient, EMS Mode of arrival: Ambulatory Limitations: No Limitations - History of Present Illness Initial comments: This is a 49-year-old male with a history of sarcoidosis times a year and a half presents with left nostril nosebleed 5 hours ago. Patient states he was at home when he felt his left nostril started bleeding. Patient states bleeding lasted for a minute or so and stopped. Patient states that it occurred again at 2 AM while he was sleeping. Patient states the first occurrence of Nosebleed. Patient stated that he had been sleeping with a compact heater for the past week or so. He denies any trauma or injuries to the nose. He denies recent cold. Patient does state that he does blowing his nose a lot. Patient denies any other medical problems denies any headache blurry vision chest pain shortness of breath or any other symptoms - Related Data Previous Rx's Medication Instructions Recorded Last Taken Type Apixaban [Eliquis] 5 mg PO BID #68 tablet 10/27/17 Unknown Rx oxyCODONE /ACETAMINOPHEN [Percocet 1 tab PO BID PRN #10 tablet 10/27/17 Unknown Rx 5/325] Albuterol Sulfate [Ventolin HFA] 2 puff IH Q4H PRN #1 hfa.aer.ad 12/14/17 U nknown Rx Amoxicillin/Potassium Clav 1 each PO BID #14 tablet 12/14/17 Unknown Rx [Augmentin 875-125 Tablet] Fluticasone [Flonase] 1 spray NS QDAY #1 bottle 07/06/19 Unknown Rx Allergies Allergy/AdvReac Type Severity Reaction Status Date / Time No Known Allergies Allergy Unverified 10/25/17 16:27 ED Review of Systems ROS: Stated complaint: NOSE BLEED Other details as noted in HPI Comment: All other systems reviewed and negative ED Past Medical Hx - Past Medical History Previous Medical History?: Yes Hx Congestive Heart Failure: No Hx Diabetes: No Hx Deep Vein Thrombosis: Yes (10/2017) Hx Asthma: No Hx COPD: Yes (emphysema,pulmonary fibrosis,pneumonia 10/2017) Hx HIV: No Additional medical history: Sarcoidosis - Surgical History Past Surgical History?: Yes Additional Surgical History: hernia repair - Social History Smoking Status: Never Smoker Substance Use Type: None - Medications Home Medications: Home Medications Medication Instructions Recorded Confirmed Last Taken Type Apixaban [Eliquis] 5 mg PO BID #68 tablet 10/27/17 Unknown Rx oxyCODONE /ACETAMINOPHEN [Percocet 1 tab PO BID PRN #10 tablet 10/27/17 Unknown Rx 5/325] Albuterol Sulfate [Ventolin HFA] 2 puff IH Q4H PRN #1 hfa.aer.ad 12/14/17 Unknown Rx Amoxicillin/Potassium Clav 1 each PO BID #14 tablet 12/14/17 Unknown Rx [Augmentin 875-125 Tablet] Fluticasone [Flonase] 1 spray NS QDAY #1 bottle 07/06/19 Unknown Rx ED Physical Exam - General Limitations: No Limitations General appearance: alert, in no apparent distress - Head Head exam: Present: atraumatic, normocephalic - Eye Eye exam: Present: normal appearance - ENT ENT exam: Present: normal orophraynx, mucous membranes moist, TM's normal bilaterally, normal external ear exam - Expanded ENT Exam Expanded Mouth exam: Present: normal external inspection Teeth exam: Present: normal inspection Throat exam: Positive: normal inspection. Negative: tonsillar erythema, tonsillomegaly - Neck Neck exam: Present: normal inspection, full ROM. Absent: tenderness, lymphadenopathy - Respiratory Respiratory exam: Present: normal lung sounds bilaterally. Absent: respiratory distress - Cardiovascular Cardiovascular Exam: Present: regular rate, normal rhythm. Absent: systolic mur mur, diastolic murmur, rubs, gallop - GI/Abdominal GI/Abdominal exam: Present: soft, normal bowel sounds - Rectal Rectal exam: Present: deferred - Extremities Exam Extremities exam: Present: normal inspection - Back Exam Back exam: Present: normal inspection - Neurological Exam Neurological exam: Present: alert, oriented X3 - Psychiatric Psychiatric exam: Present: normal affect, normal mood - Skin Skin exam: Present: warm, dry, intact, normal color. Absent: rash ED Course Vital Signs 07/06/19 07/06/19 02:57 04:20 Temperature 98.7 F Pulse Rate 92 H 77 Respiratory 18 17 Rate Blood Pressure 113/74 O2 Sat by Pulse 87 99 Oximetry ED Medical Decision Making - Medical Decision Making 49-year-old male presents with epistaxis. ED course: Patient had no bleeding episode a during ED stay. Patient received one dose of Claritin Discussed with patient proper techniques to stop the nosebleeds. Discussed with mother to call ENT doctor as referred. Discussed with patient's mother return if the nosebleed episodes returned without stopping to return to ED Discussed so medication of nasal spray to decrease episodes. Patient's mother verbalizes that she understands and will follow up with the ENT specialist. Vital signs are stable. Patient is in no acute respiratory distress. Critical care attestation.: If time is entered above; I have spent that time in minutes in the direct care of this critically ill patient, excluding procedure time. ED Disposition Clinical Impression: Acute anterior epistaxis Disposition: - TO HOME OR SELFCARE Is pt being admited?: No Does the pt Need Aspirin: No Condition: Stable Instructions: Epistaxis (ED) Additional Instructions: Make sure to follow up with the primary care physician as discussed. Take all your medications as you've been prescribed. If you have any worsening symptoms or develop new symptoms please return to ED immediately. Prescriptions: Fluticasone [Flonase] 1 spray NS QDAY #1 bottle Referrals: PRIMARY MD BECKA [Primary Care Provider] - 3-5 Days JOANNE VENCES MD [Staff Physician] - 3-5 Days Forms: Work/School Release Form(ED) Time of Disposition: 04:03
== END 2019-07-06 04:20 | disposition home or self-care (01) ==
LOC: ED 02:52
DX: R04.0 Epistaxis (principal); J44.9 Chronic obstructive pulmonary disease, unspecified

== ENCOUNTER 2019-10-04 20:56 | Emergency (ER) | payer SELFPAY ==
[2019-10-04 21:07] VITALS: BP 114/77
[2019-10-04] MEDS ORDERED: IBUPROFEN 600 MG TAB PO ONE ×2 (22:00→22:01)
--- NOTE | 2019-10-04 22:01 | Emergency Department Report ---
Blank Doc - Documentation Documentation: 49-year-old male that presents with URI symptoms. This initial assessment/diagnostic orders/clinical plan/treatment(s) is/are subject to change based on patient's health status, clinical progression and re- assessment by fellow clinical providers in the ED. Further treatment and workup at subsequent clinical providers discretion. Patient/guardians urged not to elope from the ED as their condition may be serious if not clinically assessed and managed. Initial orders include: 1- Patient sent to [facility] for further evaluation and treatment 2- xrays 3- motrin-RN to repeat vitals
--- NOTE | 2019-10-04 22:30 | XRay Report ---
CHEST 2 VIEWS INDICATION / CLINICAL INFORMATION: cough. COMPARISON: 12/14/17 FINDINGS: SUPPORT DEVICES: None. HEART / MEDIASTINUM: No significant abnormality. LUNGS / PLEURA: Linear scarring and fibrosis in the mid lungs is unchanged. No acute airspace disease . Mild left pleural thickening is unchanged. No pneumothorax. ADDITIONAL FINDINGS: No significant additional findings. IMPRESSION: 1. Chronic bilateral parenchymal changes appear stable. No new findings. Signer Name: Nirali Downing MD Signed: 10/04/2019 10:26 PM Workstation Name: [id number]
--- NOTE | 2019-10-04 22:59 | Emergency Department Report ---
- General Chief Complaint: Upper Respiratory Infection Stated Complaint: CHEST PAIN Time Seen by Provider: 10/04/19 21:58 Source: patient Mode of arrival: Ambulatory Limitations: No Limitations - History of Present Illness Initial Comments: 49-year-old -[place] male presents to the emergency room complaining of cough chills chest hurts when he coughs. Patient has a past medical history of sarcoidosis. Patient reports that he has a fever chills wheezing shortness of breath. Patient reports he ran out of his inhaler. MD Complaint: fever, cough Onset/Timin -: days(s) Severity scale (0 -10): 7 Quality: sharp Consistency: intermittent Improves With: nothing Worsens With: deep breaths Associated Symptoms: fever, chills, cough, shortness of breath. denies: diaphoresis, headache, nasal congestion, abdominal pain - Related Data Previous Rx's Medication Instructions Recorded Last Taken Type Apixaban [Eliquis] 5 mg PO BID #68 tablet 10/27/17 Unknown Rx oxyCODONE /ACETAMINOPHEN [Percocet 1 tab PO BID PRN #10 tablet 10/27/17 Unknown Rx 5/325] Albuterol Sulfate [Ventolin HFA] 2 puff IH Q4H PRN #1 hfa.aer.ad 12/14/17 Unknown Rx Amoxicillin/Potassium Clav 1 each PO BID #14 tablet 12/14/17 Unknown Rx [Augmentin 875-125 Tablet] Fluticasone [Flonase] 1 spray NS QDAY #1 bottle 07/06/19 Unknown Rx Albuterol INH(or & Nicu Only) 1 puff IH QID PRN 1 Days #8.5 gram 10/04/19 Unknown Rx [ProAir HFA Inhaler] Azithromycin [Zithromax TAB] 250 mg PO QDAY #6 tablet 10/04/19 Unknown Rx predniSONE [Deltasone] 20 mg PO QDAY 5 Days #5 tab 10/04/19 Unknown Rx Allergies Allergy/AdvReac Type Severity Reaction Status Date / Time No Known Allergies Allergy Unverified 10/25/17 16:27 ED Review of Systems ROS: Stated complaint: CHEST PAIN Other details as noted in HPI Comment: All other systems reviewed and negative ED Past Medical Hx - Past Medical History Hx Congestive Heart Failure: No Hx Diabetes: No Hx Deep Vein Thrombosis: Yes (10/2017) Hx Asthma: No Hx COPD: Yes (emphysema,pulmonary fibrosis,pneumonia 10/2017) Hx HIV: No Additional medical history: Sarcoidosis - Surgical History Additional Surgical History: hernia repair - Social History Smoking Status: Never Smoker Substance Use Type: None - Medications Home Medications: Home Medications Medication Instructions Recorded Confirmed Last Taken Type Apixaban [Eliquis] 5 mg PO BID #68 tablet 10/27/17 Unknown Rx oxyCODONE /ACETAMINOPHEN [Percocet 1 tab PO BID PRN #10 tablet 10/27/17 Unknown Rx 5/325] Albuterol Sulfate [Ventolin HFA] 2 puff IH Q4H PRN #1 hfa.aer.ad 12/14/17 Unknown Rx Amoxicillin/Potassium Clav 1 each PO BID #14 tablet 12/14/17 Unknown Rx [Augmentin 875-125 Tablet] Fluticasone [Flonase] 1 spray NS QDAY #1 bottle 07/06/19 Unknown Rx Albuterol INH(or & Nicu Only) 1 puff IH QID PRN 1 Days #8.5 gram 10/04/19 Unknown Rx [ProAir HFA Inhaler] Azithromycin [Zithromax TAB] 250 mg PO QDAY #6 tablet 10/04/19 Unknown Rx predniSONE [Deltasone] 20 mg PO QDAY 5 Days #5 tab 10/04/19 Unknown Rx ED Physical Exam - General Limitations: No Limitations General appearance: alert, in no apparent distress, cachectic - Head Head exam: Present: atraumatic, normocephalic - Eye Eye exam: Present: normal appearance - ENT ENT exam: Present: normal exam, mucous membranes moist - Neck Neck exam: Present: normal inspection, full ROM - Respiratory Respiratory exam: Present: normal lung sounds bilaterally. Absent: respiratory distress - Cardiovascular Cardiovascular Exam: Present: tachycardia - GI/Abdominal GI/Abdominal exam: Present: soft, normal bowel sounds - Extremities Exam Extremities exam: Present: normal inspection - Back Exam Back exam: Present: normal inspection - Neurological Exam Neurological exam: Present: alert, oriented X3 - Psychiatric Psychiatric exam: Present: normal affect, normal mood - Skin Skin exam: Present: warm, dry, intact, normal color. Absent: rash ED Course Vital Signs 10/04/19 10/04/19 21:06 22:03 Temperature 102.1 F H Pulse Rate 126 H Respiratory 20 18 Rate Blood Pressure 114/77 O2 Sat by Pulse 90 Oximetry ED Medical Decision Making - Radiology Data Radiology results: report reviewed Patient: ARMIDA CANTOR MR#: [id number] : 1970 Acct:[id number] Age/Sex: 49 / M ADM Date: 10/04/19 Loc: ED Attending Dr: Ordering Physician: NARCISA HERRERA NP Date of Service: 10/04/19 Procedure(s): XR chest routine 2V Accession Number(s): [id number] cc: NARCISA HERRERA NP Fluoro Time In Minutes: CHEST 2 VIEWS INDICATION / CLINICAL INFORMATION: cough. COMPARISON: 12/14/17 FINDINGS: SUPPORT DEVICES: None. HEART / MEDIASTINUM: No significant abnormality. LUNGS / PLEURA: Linear scarring and fibrosis in the mid lungs is unchanged. No acute airspace disease. Mild left pleural thickening is unchanged. No pneumothorax. ADDITIONAL FINDINGS: No significant additional findings. IMPRESSION: 1. Chronic bilateral parenchymal changes appear stable. No new findings. Signer Name: Nirali Downing MD Signed: 10/04/2019 10:26 PM Workstation Name: [id number] Transcribed By: DT Dictated By: Gabriel Downing MD Electronically Authenticated By: Gabriel Downing MD Signed Date/Time: 10/04/192225 DD/ 18 TD/TT: - Medical Decision Making 49-year-old -[place] male presents to the emergency room complaining of cough chills chest hurts when he coughs. Patient has a past medical history of sarcoidosis. Patient reports that he has a fever chills wheezing shortness of breath. Patient reports he ran out of his inhaler. Patient will be placed on azithromycin, prednisone and a refill on his Ventolin. Patient is instructed to follow-up with his primary care provider. Critical care attestation.: If time is entered above; I have spent that time in minutes in the direct care of this critically ill patient, excluding procedure time. ED Disposition Clinical Impression: Cough Fever Qualifiers: Fever type: unspecified Qualified Code(s): R50.9 - Fever, unspecified Disposition: DC- TO HOME OR SELFCARE Is pt being admited?: No Does the pt Need Aspirin: No Condition: Stable Instructions: Upper Respiratory Infection (ED) Prescriptions: predniSONE [Deltasone] 20 mg PO QDAY 5 Days #5 tab Albuterol INH(or & Nicu Only) [ProAir HFA Inhaler] 1 puff IH QID PRN 1 Days #8.5 gram PRN Reason: Shortness Of Breath Azithromycin [Zithromax TAB] 250 mg PO QDAY #6 tablet Referrals: PRIMARY MD BECKA [Primary Care Provider] - 3-5 Days LACHELLE BLACK MD [Staff Physician] - 3-5 Days Forms: Work/School Release Form(ED)
== END 2019-10-04 23:38 | disposition home or self-care (01) ==
LOC: ED 20:56
DX: R05 Cough (principal); R50.9 Fever, unspecified; I82.409 Acute embolism and thrombosis of unspecified deep veins of unspecified lower extremity; J44.9 Chronic obstructive pulmonary disease, unspecified; D86.9 Sarcoidosis, unspecified; Z98.890 Other specified postprocedural states; Z79.2 Long term (current) use of antibiotics; Z79.899 Other long term (current) drug therapy
CPT/HCPCS: 71046